=== PATIENT | male | born 1935 | race Caucasian/White ===

== ENCOUNTER 2016-07-27 20:52 | Emergency (ER) | payer BC ==
[2016-07-27 21:37] LABS: APPEARANCE CLEAR (CLEAR); BILIRUBIN NEGATIVE (NEGATIVE); COLOR YELLOW (YELLOW); GLUCOSE NEGATIVE (NEGATIVE); KETONE NEGATIVE (NEGATIVE); LEUKOCYTE ESTERASE NEGATIVE (NEGATIVE); NITRITE NEGATIVE (NEGATIVE); PROTEIN TRACE mg/dL (NEGATIVE); UROBILINOGEN NORMAL (NORMAL)
== END 2016-07-27 21:51 | disposition home or self-care (01) ==
LOC: D.ER 20:52
PROVIDERS: Family Medicine
DX: R33.9 Retention of urine, unspecified (principal); I10 Essential (primary) hypertension